=== PATIENT | female | born 1985 | race Caucasian/White ===

== ENCOUNTER → 2017-02-19 | Outpatient (CLI) | payer BC ==
[~2017-02-19] VITALS: Ht 160 cm; Wt 87.0 kg
[~2017-02-19] MED LIST: PREDNISONE10 M1 PO; PRENATAL TABLE1 EAC3 PO; TYLENOL EXTRA500 MG PO
[2017-02-19 17:48] VITALS: BP 9/69
== END | disposition home or self-care (01) ==
LOC: IVINF 17:25
DX: Z31.82 Encounter for Rh incompatibility status (principal); Z3A.28 28 weeks gestation of pregnancy; Z67.41 Type O blood, Rh negative
CPT/HCPCS: 96372; J2790

== ENCOUNTER 2017-05-12 10:39 | Inpatient (IN) | payer BC ==
[~2017-05-12] VITALS: Ht 160 cm; Wt 97.1 kg
[2017-05-12 11:07] VITALS: BP 118/76
[2017-05-12 12:17] VITALS: BP 114/66
[2017-05-12 13:43] VITALS: BP 99/61
[2017-05-12 16:09] VITALS: BP 123/57
[2017-05-12 20:10] VITALS: BP 127/66
[2017-05-12 23:37] VITALS: BP 123/61
[2017-05-13] VITALS (26 sets, daily range): BP systolic 105–136; BP diastolic 57–81
[2017-05-13 05:21] LABS: BASOPHIL COUNT 0.1 K/uL (0-0.1); EOSINOPHIL (%) 0.4 % (0-5); EOSINOPHIL COUNT 0.1 K/uL (0-0.3); HEMATOCRIT 39.4 % (36.0-46.0); IMMATURE GRANULOCYTE (%) 0.6 % (0.0-0.7); IMMATURE GRANULOCYTE COUNT 0.1 K/uL; INSTRUMENT ABS NEUTROPHIL CT 10.1 K/uL; LYMPHOCYTE COUNT 1.5 K/uL (1.0-2.8); MCH 29.5 PG (29.0-34.0); MCHC 34.8 G/DL (30.0-36.0); MCV 84.9 FL (83-99); MEAN PLAT.VOLUME 11.1 uM^3 (9.5-12.4); MONOCYTE (%) 6.9 % (3-12); MONOCYTE COUNT 0.9 K/uL (0-0.8); NEUTROPHIL (%) 79.7 % (45-76); NEUTROPHIL COUNT 10.1 K/uL (1.8-6.4); PLATELET COUNT 220 K/uL (156-360); RBC DIS.WIDTH-SD 43.6 % (39-53); RED BLOOD COUNT 4.64 M/uL (3.80-5.20); WHITE BLOOD COUNT 12.6 K/uL (4.1-10.2)
[2017-05-15 07:47] VITALS: BP 122/78
[2017-05-15] MEDS ORDERED: Tylenol Extra Streng PO (13:11)
[2017-05-15] MEDS ORDERED: IBUPROFEN800 MG PO (13:11)
== END 2017-05-15 19:00 | disposition home or self-care (01) | DRG 775 ==
LOC: LDRP-OP 10:39 → 2WEST 10:40 → LDRP-OP 06-09 09:04
PROVIDERS: Nurse Practitioner
PROC: 10E0XZZ Delivery of Products of Conception, External Approach (ICD-10-PCS; principal; 2017-05-13)
PROC: 10907ZC Drainage of Amniotic Fluid, Therapeutic from Products of Conception, Via Natural or Artificial Opening (ICD-10-PCS; principal; 2017-05-13)
PROC: 0KQM0ZZ Repair Perineum Muscle, Open Approach (ICD-10-PCS; principal; 2017-05-13)
PROC: 3E0R3BZ Introduction of Anesthetic Agent into Spinal Canal, Percutaneous Approach (ICD-10-PCS; 2017-05-13)
PROC: 00HU33Z Insertion of Infusion Device into Spinal Canal, Percutaneous Approach (ICD-10-PCS; 2017-05-13)
DX: O99.214 Obesity complicating childbirth (principal); E66.09 Other obesity due to excess calories; O77.0 Labor and delivery complicated by meconium in amniotic fluid; Z68.37 Body mass index [BMI] 37.0-37.9, adult; O70.1 Second degree perineal laceration during delivery; Z3A.40 40 weeks gestation of pregnancy; Z37.0 Single live birth
CPT/HCPCS: 83030; 85025; 86850; 86870; 86900; 86901; 88307; 90686; C1755; G0378; J2550; J2790; J3010; J7120